=== PATIENT | male | born 1975 | race Caucasian/White ===

== ENCOUNTER 2019-10-11 11:18 | Emergency (ER) | payer BC ==
--- NOTE | 2019-10-11 11:33 | EDM.PDOC ---
ED HPI GENERAL MEDICAL PROBLEM - General Chief Complaint: Upper Extremity Injury/Pain Stated Complaint: LEFT HAND SWOLLEN Time Seen by Provider: 10/11/19 11:22 Source of Information: Reports: Patient History Limitations: Reports: No Limitations - History of Present Illness INITIAL COMMENTS - FREE TEXT/NARRATIVE: 44-year-old gentleman presents the emergency room with a chief complaint of left index finger swelling and pain. Patient states that over a week ago he had a cut in his finger and since that time it has been swelling. Received Rocephin yesterday at an outside clinic without any improvement. Patient is unable to flex his finger or extend his finger at this time. 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: Other Medication(s) (im Rocephin 1 day ago) Left finger Pain Score (Numeric/FACES): 8 - Related Data Allergies Allergy/AdvReac Type Severity Reaction Status Date / Time No Known Allergies Allergy Verified 10/11/19 11:27 Home Meds: Home Meds Sulfamethoxazole/Trimethoprim [Bactrim Ds Tablet] 1 tab PO DAILY 10/11/19 [ History] Review of Systems - Review of Systems Review Of Systems: See Below Constitutional: Reports: No Symptoms Ears: Reports: No Symptoms Nose: Reports: No Symptoms Mouth/Throat: Reports: No Symptoms Respiratory: Reports: No Symptoms Cardiovascular: Reports: No Symptoms GI/Abdominal: Reports: No Symptoms Genitourinary: Reports: No Symptoms Musculoskeletal: Reports: Joint Swelling, Other (Swelling in the index finger distal metacarpal area) Skin: Reports: Change in Color Neurological: Reports: No Symptoms Psychiatric: Reports: No Symptoms ED EXAM, GENERAL - Physical Exam Exam: See Below Exam Limited By: No Limitations General Appearance: Alert, WD/WN, No Apparent Distress Eye Exam: Bilateral Eye: Normal Fundi, Normal Inspection, PERRL Ears: Normal External Exam Ear Exam: Bilateral Ear: Auricle Normal, Canal Normal Nose: Normal Inspection, Normal Mucosa, No Blood Throat/Mouth: Normal Inspection, Normal Lips Head: Atraumatic, Normocephalic Neck: Normal Inspection, Supple, Non-Tender Respiratory/Chest: No Respiratory Distress, Lungs Clear, No Accessory Muscle Use , Chest Non-Tender Cardiovascular: Normal Peripheral Pulses, Regular Rate, Rhythm GI/Abdominal: Normal Bowel Sounds, Soft, Non-Tender (Male) Exam: Deferred Rectal (Males) Exam: Deferred Back Exam: Normal Inspection, Full Range of Motion Extremities: Other (Following to the left index finger on palpation unable to flex finger at any of the joints. Is going into the palm area on passive extension and flexion) Neurological: Alert, Oriented, CN II-XII Intact Psychiatric: Normal Affect, Normal Mood Skin Exam: Dry, Intact, Erythema Course - Vital Signs Text/Narrative:: 44 yo male presents to the emergency room chief complaint of left index finger pain and swelling. Patient has had antibiotics 1 day ago for an infection in his finger now he is unable to flex his finger swelling got worse. Patient tetanus is up-to-date. X-rays reveal swelling to the finger no foreign body. Patient is received Zosyn and nystatin. Patient has a white count of 10,000 Exam shows tenosynovitis of the left index finger. Patient's tetanus is up-to- date. Patient also milligrams of morphine for pain. I discussed the case with Dr. Fuentes hand surgeon on at [facility] . As the patient go to the ER for evaluation and they can call him when he arrives. Patient will be going by POV. 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 Anna ER at [facility] Last Recorded V/S: Last Vital Signs Temp 97.1 F 10/11/19 11:23 Pulse 76 10/11/19 12:22 Resp 15 10/11/19 12:22 BP 126/72 10/11/19 12:22 Pulse Ox 100 10/11/19 12:22 - Orders/Labs/Meds Orders: Active Orders 24 hr Category Date Time Status CULTURE BLOOD [BC] Stat Lab 10/11/19 11:31 Received CULTURE BLOOD [BC] Stat Lab 10/11/19 11:53 Received Blood Culture x2 Reflex Set [OM.PC] Stat Oth 10/11/19 11:35 Ordered Labs: Laboratory Tests 10/11/19 10/11/19 Range/Units 11:31 11:31 WBC 10.73 (4.0-11.0) K/uL RBC 4.65 (4.50-5.90) M/uL Hgb 14.8 (13.0-17.0) g/dL Hct 40.2 (38.0-50.0) % MCV 86.5 (80.0-98.0) fL MCH 31.8 (27.0-32.0) pg MCHC 36.8 (31.0-37.0) g/dL RDW Std Deviation 39.8 (28.0-62.0) fl RDW Coeff of Jenny 13 (11.0-15.0) % Plt Count 164 (150-400) K/uL MPV 10.00 (7.40-12.00) fL Neut % (Auto) 69.3 (48.0-80.0) % Lymph % (Auto) 18.0 (16.0-40.0) % [place] % (Auto) 8.9 (0.0-15.0) % Eos % (Auto) 3.2 (0.0-7.0) % Baso % (Auto) 0.6 (0.0-1.5) % Neut # (Auto) 7.5 H (1.4-5.7) K/uL Lymph # (Auto) 1.9 (0.6-2.4) K/uL [place] # (Auto) 1.0 H (0.0-0.8) K/uL Eos # (Auto) 0.3 (0.0-0.7) K/uL Baso # (Auto) 0.1 (0.0-0.1) K/uL Nucleated RBC % 0.0 /100WBC Nucleated RBCs # 0 K/uL Sodium 138 (136-148) mmol/L Potassium 3.8 (3.5-5.1) mmol/L Chloride 103 (98-107) mmol/L Carbon Dioxide 22.1 (21.0-32.0) mmol/L BUN 11 (7.0-18.0) mg/dL Creatinine 1.1 (0.8-1.3) mg/dL Est Cr Clr Drug Dosing 100.67 mL/min Estimated GFR (MDRD) > 60.0 ml/min Glucose 107 H (74-106) mg/dL Calcium 8.4 L (8.5-10.1) mg/dL Total Bilirubin 0.6 (0.2-1.0) mg/dL AST 55 H (15-37) IU/L ALT 67 H (14-63) IU/L Alkaline Phosphatase 85 (46-116) U/L Total Protein 7.7 (6.4-8.2) g/dL Albumin 4.2 (3.4-5.0) g/dL Globulin 3.5 (2.6-4.0) g/dL Albumin/Globulin Ratio 1.2 (0.9-1.6) Meds: Medications Discontinued Medications Generic Name Dose Route Start Last Admin Trade Name Freq PRN Reason Stop Dose Admin Ampicillin Sodium/Sulbactam 100 mls @ 200 mls/hr 10/11/19 11:38 10/11/19 11: 53 Sodium 3 gm/ Sodium Chloride IV 10/11/19 12:07 200 mls/hr ONETIME ONE Administration Piperacillin Sod/Tazobactam 50 mls @ 100 mls/hr 10/11/19 11:38 10/11/19 11:53 Sod 3.375 gm/ Sodium Chloride IV 10/11/19 12:07 100 mls/hr ONETIME ONE Administration Morphine Sulfate 4 mg 10/11/19 12:10 10/11/19 12:15 Morphine IVPUSH 10/11/19 12:11 4 mg ONETIME ONE Administration Departure - Departure Time of Disposition: 12:56 Disposition: DC/Tfer to Acute Hospital 02 Condition: Good Clinical Impression: Other infective (teno)synovitis, left hand - Discharge Information Instructions: Tenosynovitis Referrals: Nery Damon RETAIL LOSS PREVENTION OFFICER [Primary Care Provider] - Forms: ED Department Discharge Sepsis Event Note - Focused Exam Vital Signs: Vital Signs Temp Pulse Resp BP Pulse Ox 10/11/19 12:22 76 15 126/72 100 10/11/19 11:23 97.1 F 78 18 139/94 H 99 Date Exam was Performed: 10/11/19 Time Exam was Performed: 12:55 - My Orders Last 24 Hours: My Active Orders 10/11/19 11:31 CULTURE BLOOD [BC] Stat 10/11/19 11:35 Blood Culture x2 Reflex Set [OM.PC] Stat 10/11/19 11:53 CULTURE BLOOD [BC] Stat - Assessment/Plan Last 24 Hours: My Active Orders 10/11/19 11:31 CULTURE BLOOD [BC] Stat 10/11/19 11:35 Blood Culture x2 Reflex Set [OM.PC] Stat 10/11/19 11:53 CULTURE BLOOD [BC] Stat
[2019-10-11] MEDS ORDERED: Ampicillin/Sulbactam Na 3 GM in Sodium Chloride 0.9% 100 ML IV ONE (11:38)
[2019-10-11] MEDS ORDERED: Piperacillin/Tazobactam 3.375 GM in Sodium Chloride 0.9% 50 ML IV ONE (11:38)
[2019-10-11 12:02] LABS: BLOOD UREA NITROGEN,BUN 11 mg/dL (7.0-18.0); CARBON DIOXIDE,CO2 22.1 mmol/L (21.0-32.0); CHLORIDE,CL 103 mmol/L (98-107); GLUCOSE RANDOM 107 mg/dL (74-106); POTASSIUM,K 3.8 mmol/L (3.5-5.1); SODIUM,NA 138 mmol/L (136-148)
--- NOTE | 2019-10-11 12:03 | CR ---
Addendum: Impression states left 3rd finger study which is incorrect, study was a left 2nd finger exam. Other portions of the dictation remain the same. --- Addendum1 above dictated on [10/11/2019 11:44] by [Jimmie Vu, Lopez Aguero] --- --- Addendum1 above signed on [10/11/2019 11:45] by [Jimmie Vu Hilton J.] --- --- Original report below dictated on [10/11/2019 11:00] by [Jimmie Vu, Lopez Aguero] --- --- Original report below signed on [10/11/2019 11:01] by [Jimmie Vu, Lopez Aguero] --- Left 2nd finger: 3 views centered to the left 2nd finger were obtained. Comparison: No previous finger or hand exam is available. Findings: Diffuse soft tissue swelling is noted. Joint spaces are preserved. No fracture or other bony abnormality is appreciated. No radiopaque foreign body is seen. Impression: 1. Diffuse soft tissue swelling. 2. No additional abnormality is appreciated on left 3rd finger study. Diagnostic code #3 This report was dictated in MDT --- Addendum1 signed ---
[2019-10-11] MEDS ORDERED: Morphine 4 MG/ML Syringe IVPUSH ONE (12:10)
[2019-10-11] MEDS ORDERED: Morphine 10 MG/ML Syringe IVPUSH ONE ×2 (13:07→14:08)
== END 2019-10-11 14:34 ==
LOC: MW.ED 11:18
DX: M65.142 Other infective (teno)synovitis, left hand (principal)
CPT/HCPCS: 73140; 80053; 85025; 87040; 96365; 96367; 96375; 96376; 99284; J0295; J2270; J2543; J7050